=== PATIENT | female | born 1990 | race Caucasian/White ===

== ENCOUNTER 2017-07-25 12:00 | Emergency (ER) | payer OTHER ==
[2017-07-25] MEDS ORDERED: Sodium Chloride 0.9% 10 ML Syringe FLUSH PRN (12:40)
[2017-07-25] MEDS ORDERED: Sodium Chloride 0.9% 2.5 ML Syringe FLUSH PRN (12:40)
[2017-07-25] MEDS ORDERED: Ketorolac 30 MG/ML SDV IVPUSH ONE (12:41)
[2017-07-25] MEDS ORDERED: Sodium Chloride 0.9% 1,000 ML IV ONE (12:41)
[2017-07-25 13:23] LABS: CHLORIDE,CL 107 mmol/L (98-107); SODIUM,NA 141 mmol/L (136-145)
--- NOTE | 2017-07-25 13:53 | EDM.PDOC ---
ED HPI GENERAL MEDICAL PROBLEM - General Chief Complaint: Gastrointestinal Problem Stated Complaint: NOT FEELING WELL Time Seen by Provider: 07/25/17 12:09 Source of Information: Reports: Patient History Limitations: Reports: No Limitations - History of Present Illness INITIAL COMMENTS - FREE TEXT/NARRATIVE: History of present illness: []Patient states she's been having, cramping with vomiting and diarrhea for 1 week approximately 15 episodes of diarrhea per day that is watery and initially nonbloody but has since had small specks of blood in it. Patient states she's been vomiting 2-3 times a day. She is concerned because she was taken care of her grandfather who has C. difficile, patient has not had any recent antibiotics , fevers and is tolerating fluids. Review of systems: As per history of present illness and below otherwise all systems reviewed and negative. Past medical history: As per history of present illness and as reviewed below otherwise noncontributory. Surgical history: As per history of present illness and as reviewed below otherwise noncontributory. Social history: No reported history of drug or alcohol abuse. Family history: As per history of present illness and as reviewed below otherwise noncontributory. Physical exam: General: Well developed, well nourished in NAD no emesis while in the ED HEENT: Atraumatic, normocephalic, pupils reactive, negative for conjunctival pallor or scleral icterus, mucous membranes moist, throat clear, neck supple, nontender, trachea midline. Lungs: Clear to auscultation, breath sounds equal bilaterally, chest nontender. Heart: S1S2, regular, negative for clicks, rubs, or JVD. Abdomen: Soft, nondistended, nontender no rebound or guarding. Negative for masses or hepatosplenomegaly. Negative for costovertebral tenderness. Pelvis: Stable nontender. Genitourinary: Deferred. Rectal: Deferred. Extremities: Atraumatic, negative for cords or calf pain. Neurovascular unremarkable. Neuro: Awake, alert, oriented. Cranial nerves II through XII unremarkable. Cerebellum unremarkable. Motor and sensory unremarkable throughout. Exam nonfocal. Diagnostics: []CBC normal chemistries normal Therapeutics: []IV hydrated with normal saline and given Toradol with improvement she has had no vomiting or diarrhea here in the emergency room Impression: []Acute gastroenteritis Plan: []Follow-up with primary care Definitive disposition and diagnosis as appropriate pending reevaluation and review of above. Abdominal Pain Score (Numeric/FACES): 6 - Related Data Allergies Allergy/AdvReac Type Severity Reaction Status Date / Time No Known Allergies Allergy Verified 07/25/17 12:12 Home Meds: Home Meds ARIPiprazole [Abilify] 2.5 mg PO DAILY 07/25/17 [History] Venlafaxine [Effexor] 75 mg PO DAILY 07/25/17 [History] Past Medical History Psychiatric History: Reports: Anxiety Social & Family History - Tobacco Use Smoking Status *Q: Never Smoker Second Hand Smoke Exposure: No - Caffeine Use Caffeine Use: Reports: Coffee, Energy Drinks, Tea - Recreational Drug Use Recreational Drug Use: No ED ROS GENERAL - Review of Systems Review Of Systems: See Below (See history of present illness) ED EXAM, GI/ABD - Physical Exam Exam: See Below (See history of present illness) Course - Vital Signs Last Recorded V/S: Last Vital Signs Temp 97.4 F 07/25/17 12:18 Pulse 75 07/25/17 12:18 Resp 18 07/25/17 12:18 BP 114/63 07/25/17 12:18 Pulse Ox 96 07/25/17 12:18 - Orders/Labs/Meds Orders: Active Orders 24 hr Category Date Time Status HCG QUALITATIVE,URINE [URCHEM] Stat Lab 07/25/17 12:40 Ordered UA W/MICROSCOPIC [URIN] Stat Lab 07/25/17 12:40 Ordered Sodium Chloride 0.9% [Saline Flush] Med 07/25/17 12:40 Active 10 ml FLUSH ASDIRECTED PRN Sodium Chloride 0.9% [Saline Flush] Med 07/25/17 12:40 Active 2.5 ml FLUSH ASDIRECTED PRN Saline Lock Insert [OM.PC] Stat Oth 07/25/17 12:40 Ordered Medication Orders Sodium Chloride (Saline Flush) 10 ml FLUSH ASDIRECTED PRN PRN Reason: Keep Vein Open Last Admin: 07/25/17 13:06 Dose: 10 ml Sodium Chloride (Saline Flush) 2.5 ml FLUSH ASDIRECTED PRN PRN Reason: Keep Vein Open Labs: Laboratory Tests 07/25/17 07/25/17 Range/Units 12:50 12:50 WBC 6.54 (4.0-11.0) K/uL RBC 4.52 (4.30-5.90) M/uL Hgb 13.3 (12.0-16.0) g/dL Hct 39.9 (36.0-46.0) % MCV 88.3 (80.0-98.0) fL MCH 29.4 (27.0-32.0) pg MCHC 33.3 (31.0-37.0) g/dL RDW Std Deviation 39.1 (28.0-62.0) fl RDW Coeff of Glenda 12 (11.0-15.0) % Plt Count 286 (150-400) K/uL MPV 10.00 (7.40-12.00) fL Neut % (Auto) 47.9 L (48.0-80.0) % Lymph % (Auto) 43.7 H (16.0-40.0) % [place] % (Auto) 6.4 (0.0-15.0) % Eos % (Auto) 1.1 (0.0-7.0) % Baso % (Auto) 0.9 (0.0-1.5) % Neut # (Auto) 3.1 (1.4-5.7) K/uL Lymph # (Auto) 2.9 H (0.6-2.4) K/uL [place] # (Auto) 0.4 (0.0-0.8) K/uL Eos # (Auto) 0.1 (0.0-0.7) K/uL Baso # (Auto) 0.1 (0.0-0.1) K/uL Nucleated RBC % 0.0 /100WBC Nucleated RBCs # 0 K/uL Sodium 141 (136-145) mmol/L Potassium 4.4 (3.5-5.1) mmol/L Chloride 107 (98-107) mmol/L Carbon Dioxide 27.0 (21.0-32.0) mmol/L BUN 7 (7.0-18.0) mg/dL Creatinine 0.8 (0.6-1.0) mg/dL Est Cr Clr Drug Dosing 88.93 mL/min Estimated GFR (MDRD) > 60.0 ml/min Glucose 96 (74-106) mg/dL Calcium 9.2 (8.5-10.1) mg/dL Total Bilirubin 0.3 (0.2-1.0) mg/dL AST 20 (15-37) IU/L ALT 40 (14-63) IU/L Alkaline Phosphatase 83 (46-116) U/L Total Protein 7.4 (6.4-8.2) g/dL Albumin 3.9 (3.4-5.0) g/dL Globulin 3.5 (2.0-3.5) g/dL Albumin/Globulin Ratio 1.1 L (1.3-2.8) Meds: Medications Generic Name Dose Route Start Last Admin Trade Name Freq PRN Reason Stop Dose Admin Sodium Chloride 10 ml 07/25/17 12:40 07/25/17 13:06 Saline Flush FLUSH 10 ml ASDIRECTED PRN Administration Keep Vein Open Sodium Chloride 2.5 ml 07/25/17 12:40 Saline Flush FLUSH ASDIRECTED PRN Keep Vein Open Discontinued Medications Generic Name Dose Route Start Last Admin Trade Name Freq PRN Reason Stop Dose Admin Sodium Chloride 1,000 mls @ 999 mls/hr 07/25/17 12:41 07/25/17 13:05 Normal Saline IV 07/25/17 13:41 999 mls/hr .Bolus ONE Administration Ketorolac Tromethamine 30 mg 07/25/17 12:41 07/25/17 13:05 Toradol IVPUSH 07/25/17 12:42 30 mg ONETIME ONE Administration Departure - Departure Time of Disposition: 13:51 Disposition: Home, Self-Care 01 Condition: Good Clinical Impression: Acute gastroenteritis - Discharge Information Referrals: PCP,None [Primary Care Provider] - Additional Instructions: The following information is given to patients seen in the emergency department who are being discharged to home. This information is to outline your options for follow-up care. We provide all patients seen in our emergency department with a follow-up referral. The need for follow-up, as well as the timing and circumstances, are variable depending upon the specifics of your emergency department visit. If you don't have a primary care physician on staff, we will provide you with a referral. We always advise you to contact your personal physician following an emergency department visit to inform them of the circumstance of the visit and for follow-up with them and/or the need for any referrals to a consulting specialist. The emergency department will also refer you to a specialist when appropriate. This referral assures that you have the opportunity for follow-up care with a specialist. All of these measure are taken in an effort to provide you with optimal care, which includes your follow-up. Under all circumstances we always encourage you to contact your private physician who remains a resource for coordinating your care. When calling for follow-up care, please make the office aware that this follow-up is from your recent emergency room visit. If for any reason you are refused follow-up, please contact the [facility] Emergency Department at and asked to speak to the emergency department charge nurse. Follow-up with primary care return to ER if symptoms worsen - My Orders Last 24 Hours: My Active Orders 07/25/17 12:40 HCG QUALITATIVE,URINE [URCHEM] Stat UA W/MICROSCOPIC [URIN] Stat Sodium Chloride 0.9% [Saline Flush] 10 ml FLUSH ASDIRECTED PRN Sodium Chloride 0.9% [Saline Flush] 2.5 ml FLUSH ASDIRECTED PRN Saline Lock Insert [OM.PC] Stat - Assessment/Plan Last 24 Hours: My Active Orders 07/25/17 12:40 HCG QUALITATIVE,URINE [URCHEM] Stat UA W/MICROSCOPIC [URIN] Stat Sodium Chloride 0.9% [Saline Flush] 10 ml FLUSH ASDIRECTED PRN Sodium Chloride 0.9% [Saline Flush] 2.5 ml FLUSH ASDIRECTED PRN Saline Lock Insert [OM.PC] Stat
== END 2017-07-25 14:24 | disposition home or self-care (01) ==
LOC: MW.ED 12:00
DX: K52.9 Noninfective gastroenteritis and colitis, unspecified (principal)
CPT/HCPCS: 36415; 80053; 85025; 96361; 96374; 99284; J1885; J7040

== ENCOUNTER 2019-08-18 11:52 | Emergency (ER) | payer OTHER ==
--- NOTE | 2019-08-18 12:07 | EDM.PDOC ---
ED HPI GENERAL MEDICAL PROBLEM - General Chief Complaint: Skin Complaint Stated Complaint: REDNESS ON FACE Time Seen by Provider: 08/18/19 12:05 Source of Information: Reports: Patient History Limitations: Reports: No Limitations - History of Present Illness INITIAL COMMENTS - FREE TEXT/NARRATIVE: 29-year-old female with no past medical history presenting for evaluation of lesions on the face and groin. Patient is currently taking oral amoxicillin after being diagnosed with impetigo of the left nostril by primary care clinic. She presents to our emergency department because she has 2 erythematous crusting lesions to the right side of her face and identical lesion to her left pubic area in the region of her pubic hair and a similar lesion to the proximal anterior left thigh. All 4 of these lesions appeared at roughly the same time, approximately 1 week ago when she was diagnosed with impetigo of her left nostril. She has been taking her prescribed amoxicillin and has not missed any doses. She denies any fever, chills, vomiting, or any other complaints. - Related Data Allergies Allergy/AdvReac Type Severity Reaction Status Date / Time No Known Allergies Allergy Verified 08/18/19 12:04 Home Meds: Home Meds Amoxicillin 500 mg PO BID 08/18/19 [History] Levonorgestrel/Ethin.estradiol [Lillow-28 Tablet] 1 mg PO DAILY 08/18/19 [ History] Past Medical History - Past Health History Medical/Surgical History: Denies Medical/Surgical History Psychiatric History: Reports: Anxiety Social & Family History - Family History Family Medical History: Noncontributory - Caffeine Use Caffeine Use: Reports: Coffee, Energy Drinks, Soda, Tea ED ROS GENERAL - Review of Systems Review Of Systems: See Below Constitutional: Denies: Fever, Chills GI/Abdominal: Denies: Nausea, Vomiting Skin: Reports: Lesions, Other (2 erythematous lesions to the right side of the face with central peeling and some honey crusting, suspicious for impetigo. 2 identical lesions were noted, one in the left side of the pubic area and one on the anterior proximal thigh, no raised edges or peeling at the edges to suggest ringworm. More consistent with impetigo.) ED EXAM, SKIN/RASH Exam: See Below Course - Vital Signs Text/Narrative:: 29-year-old female presenting with skin lesions. Patient hemodynamically stable, afebrile, well-appearing, looks nontoxic. Differential diagnosis includes but is not limited to: Impetigo, ringworm, cellulitis, allergic reaction, dermatitis. Patient is well-appearing, nontoxic. No systemic signs of illness. Physical exam is consistent with impetigo given multiple erythematous lesions that appeared at the same time with honey crusting. These lesions do not exhibit rolled edges or central clearing or crusting at the edge as I would expect with ringworm. There is no evidence of cellulitis or systemic toxicity/illness. We will plan for a 7 to 10-day course of treatment with Bactroban and I will have the patient finish her current amoxicillin prescription. Encouraged primary care follow-up if symptoms do not improve. Plan: Patient is stable to discharge home with outpatient primary care follow- up. Strict emergency department return precautions were provided, patient indicated understanding. All questions were answered prior to departure. Discharged in good condition. Last Recorded V/S: Last Vital Signs Temp 36.6 C 08/18/19 12:04 Pulse 78 08/18/19 12:04 Resp 18 08/18/19 12:04 BP 107/66 08/18/19 12:04 Pulse Ox 98 08/18/19 12:04 Departure - Departure Time of Disposition: 12:29 Disposition: Home, Self-Care 01 Condition: Good Clinical Impression: Impetigo - Discharge Information *PRESCRIPTION DRUG MONITORING PROGRAM REVIEWED*: Not Applicable *COPY OF PRESCRIPTION DRUG MONITORING REPORT IN PATIENT FREDDIE: Not Applicable Instructions: Impetigo, Adult Referrals: Gm Sierra MD [Primary Care Provider] - 1 Week (Follow-up with your doctor in 1 week if symptoms do not improve.) Forms: ED Department Discharge Additional Instructions: Thank you for choosing the [facility] emergency department in [place] for your medical needs today. It was a pleasure caring for you. You were seen in the emergency department for skin lesions. I believe that these are due to impetigo, a bacterial infection of the skin and less likely due to ringworm. I recommend that you finish your oral amoxicillin prescription and start the topical antibiotic that I prescribed to your pharmacy. You should follow-up with your primary medical clinic in 1 to 2 weeks if your skin lesions do not improve. Please return the emergency department immediately if your symptoms worsen or if you feel worse. The following information is given to patients seen in the emergency department who are being discharged. This information is to outline your options for follow -up care. We provide all patients seen in our emergency department with a follow -up referral. The need for follow-up, as well as the timing and circumstances, are variable depending upon the specifics of your emergency department visit. If you don't have a primary care physician on staff, we will provide you with a referral. We always advise you to contact your personal physician following an emergency department visit to inform them of the circumstance of the visit and for follow-up with them and/or the need for any referrals to a consulting specialist. The emergency department will also refer you to a specialist when appropriate. This referral assures that you have the opportunity for follow-up care with a specialist. All of these measure are taken in an effort to provide you with optimal care, which includes your follow-up. Under all circumstances we always encourage you to contact your private physician who remains a resource for coordinating your care. When calling for follow-up care, please make the office aware that this follow-up is from your recent emergency room visit. If for any reason you are refused follow-up, please contact the [facility] Emergency Department at and asked to speak to the emergency department charge nurse. If you do not have a primary care physician that is caring for you, you can contact these clinics below to set up an appointment to establish care: [facility] - Primary Care [address] [place] [id number] [facility] [address] [place] [id number] Sepsis Event Note - Focused Exam Vital Signs: Vital Signs Temp Pulse Resp BP Pulse Ox 08/18/19 12:04 36.6 C 78 18 107/66 98 Date Exam was Performed: 08/18/19 Time Exam was Performed: 12:30
== END 2019-08-18 12:39 | disposition home or self-care (01) ==
LOC: MW.ED 11:52
DX: L01.00 Impetigo, unspecified (principal)
CPT/HCPCS: 99282

== ENCOUNTER 2019-08-22 23:04 | Emergency (ER) | payer OTHER ==
--- NOTE | 2019-08-22 23:19 | EDM.PDOC ---
ED HPI GENERAL MEDICAL PROBLEM - General Chief Complaint: Skin Complaint Stated Complaint: POSSIBLE RING WORM Time Seen by Provider: 08/22/19 23:10 Source of Information: Reports: Patient History Limitations: Reports: No Limitations - History of Present Illness INITIAL COMMENTS - FREE TEXT/NARRATIVE: History of present illness: [Patient is 29-year-old female who presents with concern for possible ringworm. She states that she was seen previously and told she had impetigo, she was given a prescription for amoxicillin which she finished a 10-day course of and then recently was reevaluated and given topical mupirocin, neither of these medications have made a difference, she feels like the itchiness is worsening and she is getting newer lesions on her extremities. She has lesions on her face, abdomen, legs, and trunk. Denies fever, chest pain, shortness of breath, known COVID-19 exposure, or other systemic symptoms.] Review of systems: As per history of present illness and below otherwise all systems reviewed and negative. Past medical history: As per history of present illness and as reviewed below otherwise noncontributory. Surgical history: As per history of present illness and as reviewed below otherwise noncontributory. Social history: No reported history of drug or alcohol abuse. Family history: As per history of present illness and as reviewed below otherwise noncontributory. Physical exam: General: Awake, alert, no acute distress, A&O X3. HEENT: Atraumatic, normocephalic, pupils reactive, negative for conjunctival pallor or scleral icterus, mucous membranes moist, throat clear, neck supple, nontender, trachea midline. Lungs: Clear to auscultation, breath sounds equal bilaterally, chest nontender. Heart: RRR, normal S1S2, no JVD. Abdomen: Soft, nondistended, nontender. Negative for masses or hepatosplenomegaly. Negative for costovertebral tenderness. Pelvis: Stable nontender. Genitourinary: Deferred. Rectal: Deferred. SKIN: Scattered circular erythematous lesions with central clearing consistent with tinea/ringworm. Extremities: Atraumatic, no edema, Neurovascular unremarkable. Neuro: Motor and sensory grossly intact throughout. Exam nonfocal. Diagnostics: [] Therapeutics: [] Impression: [] Plan: [] Definitive disposition and diagnosis as appropriate pending reevaluation and review of above. Face/Facial Pain Score (Numeric/FACES): 8 - Related Data Allergies Allergy/AdvReac Type Severity Reaction Status Date / Time No Known Allergies Allergy Verified 08/18/19 12:04 Home Meds: Home Meds Levonorgestrel/Ethin.estradiol [Lillow-28 Tablet] 1 mg PO DAILY 08/18/19 [ History] Mupirocin Oint [Bactroban Oint] 22 gm TP TID 10 Days #1 tube 08/18/19 [Rx] Clotrimazole [Lotrimin AF 1% Crm] 30 gm TOP BID #1 tube 08/22/19 [Rx] Past Medical History - Past Health History Medical/Surgical History: Denies Medical/Surgical History HEENT History: Reports: None Cardiovascular History: Reports: None Respiratory History: Reports: None Gastrointestinal History: Reports: None Genitourinary History: Reports: None J[employer] History: Reports: None Musculoskeletal History: Reports: None Neurological History: Reports: None Psychiatric History: Reports: Anxiety Endocrine/Metabolic History: Reports: None Hematologic History: Reports: None Immunologic History: Reports: None Oncologic (Cancer) History: Reports: None Dermatologic History: Reports: None - Infectious Disease History Infectious Disease History: Reports: None - Past Surgical History Head Surgeries/Procedures: Reports: None Social & Family History - Family History Family Medical History: Noncontributory - Caffeine Use Caffeine Use: Reports: Coffee, Energy Drinks, Soda, Tea ED ROS GENERAL - Review of Systems Review Of Systems: Comprehensive ROS is negative, except as noted in HPI. ED EXAM, SKIN/RASH Exam: See Below (see h and p) Course - Vital Signs Text/Narrative:: Physical exam findings are consistent with ringworm. Patient provided with prescription for clotrimazole, also informed her there were [id number] options she could use for topical fungal infections. She is otherwise well- appearing with stable vital signs. Return precautions provided, encouraged her to follow-up in the outpatient setting. Last Recorded V/S: Last Vital Signs Temp 36.1 C 08/22/19 23:13 Pulse 82 08/22/19 23:13 Resp 17 08/22/19 23:13 BP 130/94 H 08/22/19 23:13 Pulse Ox 97 08/22/19 23:13 Departure - Departure Time of Disposition: 23:20 Disposition: Home, Self-Care 01 Condition: Good Clinical Impression: Ringworm - Discharge Information Prescriptions: Clotrimazole [Lotrimin AF 1% Crm] 30 gm TOP BID #1 tube Instructions: Body Ringworm Referrals: Gm Sierra MD [Primary Care Provider] - Forms: ED Department Discharge Additional Instructions: The following information is given to patients seen in the emergency department who are being discharged to home. This information is to outline your options for follow-up care. We provide all patients seen in our emergency department with a follow-up referral. The need for follow-up, as well as the timing and circumstances, are variable depending upon the specifics of your emergency department visit. If you don't have a primary care physician on staff, we will provide you with a referral. We always advise you to contact your personal physician following an emergency department visit to inform them of the circumstance of the visit and for follow-up with them and/or the need for any referrals to a consulting specialist. The emergency department will also refer you to a specialist when appropriate. This referral assures that you have the opportunity for follow-up care with a specialist. All of these measure are taken in an effort to provide you with optimal care, which includes your follow- up. Under all circumstances we always encourage you to contact your private physician who remains a resource for coordinating your care. When calling for follow-up care, please make the office aware that this follow-up is from your recent emergency room visit. If for any reason you are refused follow-up, please contact the [facility] Emergency Department at and asked to speak to the emergency department charge nurse. [facility] [address] [place] [id number] [address] [id number] Sepsis Event Note (ED) - Evaluation Sepsis Screening Result: No Definite Risk - Focused Exam Vital Signs: Vital Signs Temp Pulse Resp BP Pulse Ox 08/22/19 23:13 36.1 C 82 17 130/94 H 97
== END 2019-08-22 23:42 | disposition home or self-care (01) ==
LOC: MW.ED 23:04
DX: B35.9 Dermatophytosis, unspecified (principal)
CPT/HCPCS: 99282

== ENCOUNTER 2024-11-13 20:43 | Emergency (ER) | payer BC | END 2024-11-13 23:05 | disposition home or self-care (01) | LOC: MW.ED 20:43 | DX: M25.561 Pain in right knee (principal); W01.0XXA Fall on same level from slipping, tripping and stumbling without subsequent striking against object, initial encounter; Y93.64 Activity, baseball | CPT/HCPCS: 73560; 73590; 73600; 73630; 99283; A9270 ==